=== PATIENT | female | born 1985 | race Caucasian/White ===

== ENCOUNTER 2018-09-27 22:55 | Observation (INO) | payer MEDICAID ==
[2018-09-28 00:05] LABS: Appearance SLIGHTLY CLOUDY (CLEAR); Bilirubin NEGATIVE (NEGATIVE); Blood NEGATIVE Ery/ul (0-5); Glucose NEGATIVE (NEGATIVE); Ketones TRACE (NEGATIVE); Leukocyte Esterase NEGATIVE (NEGATIVE); Nitrite NEGATIVE (NEGATIVE); Protein,Urine Dip 30 (Negative); Specific Gravity 1.025 (1.005-1.025); Urobilinogen 2 mg/dL (0-1)
[2018-09-28 00:41] VITALS: BP 126/76; PULSE 94
== END 2018-09-28 00:30 | disposition home or self-care (01) ==
LOC: OB 22:55
PROVIDERS: ADMIT Family Medicine; ATTEND Family Medicine
DX: Z34.83 Encounter for supervision of other normal pregnancy, third trimester (principal)
CPT/HCPCS: 81001; G0378

== ENCOUNTER 2018-11-03 20:44 | Observation (INO) | payer MEDICAID ==
[2018-11-03 22:04] LABS: Amphetamine,Urine NEGATIVE (NEGATIVE); Barbiturate,Urine NEGATIVE (NEGATIVE); Benzodiazepine,Urine NEGATIVE (NEGATIVE); Cocaine,Urine NEGATIVE (NEGATIVE); Methadone,Urine NEGATIVE (NEGATIVE); Opiate,Urine NEGATIVE (NEGATIVE); PCP,Urine NEGATIVE (NEGATIVE); THC,Urine NEGATIVE (NEGATIVE)
[2018-11-03 22:07] LABS: Appearance SLIGHTLY CLOUDY (CLEAR)
[2018-11-03 22:08] LABS: Bilirubin SMALL (NEGATIVE); Blood NEGATIVE Ery/ul (0-5); Epithelial Cells FEW /HPF (FEW); Glucose NEGATIVE (NEGATIVE); Ketones TRACE (NEGATIVE); Leukocyte Esterase NEGATIVE (NEGATIVE); Mucus SLIGHT /HPF (NEGATIVE); Nitrite NEGATIVE (NEGATIVE); Protein,Urine Dip 100 (Negative); Specific Gravity 1.032 (1.005-1.025); Urobilinogen 4 mg/dL (0-1)
[2018-11-03 23:24] VITALS: BP 133/75; PULSE 109
== END 2018-11-03 22:45 | disposition home or self-care (01) ==
LOC: OB 20:44
PROVIDERS: ADMIT Family Medicine; ATTEND Family Medicine
DX: Z34.83 Encounter for supervision of other normal pregnancy, third trimester (principal)
CPT/HCPCS: 80307; 81001; G0378

== ENCOUNTER 2018-11-06 10:10 | Observation (INO) | payer MEDICAID ==
[2018-11-06 10:47] LABS: BASOPHIL % 0.2 % (0.0-0.4); Basophil (Absolute #) 0.02 (0-0.4); Eosinophil % 1.8 % (0.00-5.0); Eosinophil (Absolute #) 0.17 (0-0.5); Granulocyte Absolute (ANC) 6.98 (1.4-6.9); Granulocytes % 74.5 % (36.0-66.0); Hematocrit 30.8 % (35-47); Hemoglobin 9.8 gm/dl (12.0-16.0); Lymphocyte (Absolute #) 1.43 (1.0-4.6); Lymphocytes % 15.2 % (24.0-44.0); Mean Cell Volume 82.8 fl (78-100); Mean Corpuscular Hemoglobin 26.3 pg (26-32); Mean Corpuscular Hgb Concent. 31.8 g/dl (32-36); Mean Platelet Volume 9.8 fl (6-9.5); Monocyte (Absolute #) 0.78 (0.0-1.3); Monocytes % 8.3 % (0.0-12.0); Platelet Count 245 K/mm3 (150-450); Red Blood Count 3.72 M/mm3 (4.1-5.4); Red Cell Distribution Width 14.7 % (11.5-14.0); White Blood Count 9.4 K/mm3 (4.0-10.5)
[2018-11-06 11:01] VITALS: BP 136/75; PULSE 98
[2018-11-06 11:11] LABS: ALBUMIN 3.6 g/dL (3.5-5.0); ALKALINE PHOSPHATASE 157 U/L (38-126); ANION GAP 12.6 MEQ/L (5-15); BLOOD UREA NITROGEN 10 mg/dL (7-17); CHLORIDE 105 mmol/L (98-107); Carbon Dioxide 23 mmol/L (22-30); Creatinine 1 0.65 mg/dL (0.52-1.04); Glucose 102 mg/dL (74-106); Potassium 3.5 mmol/L (3.5-5.1); SGOT/AST 17 U/L (14-36); SGPT/ALT 18 U/L (0-35); SODIUM 137 mmol/L (137-145); Total Protein 6.9 g/dL (6.3-8.2); Uric Acid 3.9 mg/dL (2.6-6.0)
== END 2018-11-06 12:10 | disposition home or self-care (01) ==
LOC: OB 10:10
PROVIDERS: ADMIT Family Medicine; ATTEND Family Medicine
DX: Z34.83 Encounter for supervision of other normal pregnancy, third trimester (principal)
CPT/HCPCS: 36415; 59025; 80053; 84550; 85025; G0378

== ENCOUNTER 2018-11-08 00:05 | Inpatient (IN) | payer MEDICAID ==
[2018-11-08] MEDS ORDERED: Decadron 4 MG INJ IV ONE (00:06)
[2018-11-08] MEDS ORDERED: Pitocin 10 UNITS/ML IV ONE (00:06)
[2018-11-08] MEDS ORDERED: LIDOCAINE HCL 2% 100 MG/5 ML IJ ONE (00:06)
[2018-11-08] MEDS ORDERED: Zofran 4 MG/2 ML VIAL IV ONE (00:06)
[2018-11-08] MEDS ORDERED: TORADOL IV ONE (00:06)
[2018-11-08] MEDS ORDERED: Ephedrine Sulfate 50 MG/ML IJ ONE (00:06)
[2018-11-08] MEDS ORDERED: Lactated Ringers 1,000 ML IV ONE ×2 (01:06→07:17)
[2018-11-08] MEDS ORDERED: Reglan 10 MG/2 ML IV SCH (01:15)
[2018-11-08] MEDS ORDERED: BICITRA 30 ML CUP PO SCH (01:15)
[2018-11-08] MEDS ORDERED: Pepcid 20 MG VIAL IV SCH (01:15)
[2018-11-08] MEDS ORDERED: Lactated Ringers 1,000 ML IV SCH (01:30)
[2018-11-08] MEDS ORDERED: CLINDAMYCIN-D5W 900 MG/50 ML*** 900 MG/50 ML BAG IV SCH (01:30)
[2018-11-08 02:10] LABS: Hemoglobin 9.3 gm/dl (12.0-16.0); Mean Cell Volume 81.9 fl (78-100); Mean Corpuscular Hgb Concent. 32.1 g/dl (32-36); Mean Platelet Volume 9.6 fl (6-9.5); Platelet Count 229 K/mm3 (150-450); Red Blood Count 3.54 M/mm3 (4.1-5.4); Red Cell Distribution Width 14.6 % (11.5-14.0); White Blood Count 8.9 K/mm3 (4.0-10.5)
[2018-11-08 02:15] LABS: Mean Corpuscular Hemoglobin 26.2 pg (26-32)
[2018-11-08 02:31] LABS: PROTIME 11.6 SECONDS (9.95-12.35)
[2018-11-08 02:34] LABS: PTT 28.6 SECONDS (25.3-37.0)
[2018-11-08 02:38] LABS: Appearance SLIGHTLY CLOUDY (CLEAR); Bilirubin NEGATIVE (NEGATIVE); Blood NEGATIVE Ery/ul (0-5); Epithelial Cells RARE /HPF (FEW); Glucose NEGATIVE (NEGATIVE); Ketones NEGATIVE (NEGATIVE); Leukocyte Esterase NEGATIVE (NEGATIVE); Mucus SLIGHT /HPF (NEGATIVE); Nitrite NEGATIVE (NEGATIVE); Protein,Urine Dip NEGATIVE (Negative); Specific Gravity 1.018 (1.005-1.025); Urobilinogen NEGATIVE mg/dL (0-1)
[2018-11-08 02:42] LABS: Bacteria NONE SEEN /HPF (NEGATIVE)
[2018-11-08 02:52] LABS: ABO TYPING O; Antibody Screen NEGATIVE (NEGATIVE); RH TYPING NEGATIVE
[2018-11-08 03:33] LABS: Amphetamine,Urine NEGATIVE (NEGATIVE); Barbiturate,Urine NEGATIVE (NEGATIVE); Benzodiazepine,Urine NEGATIVE (NEGATIVE); Cocaine,Urine NEGATIVE (NEGATIVE); Methadone,Urine NEGATIVE (NEGATIVE); Opiate,Urine NEGATIVE (NEGATIVE); PCP,Urine NEGATIVE (NEGATIVE); THC,Urine NEGATIVE (NEGATIVE)
[2018-11-08] MEDS ORDERED: BENADRYL 50 MG/ML IV PRN (10:00)
[2018-11-08] MEDS ORDERED: CLARITIN 10 MG PO PRN (10:00)
[2018-11-08] MEDS ORDERED: TYLENOL EXTRA STRENGTH 500 MG PO PRN (10:00)
[2018-11-08] MEDS ORDERED: Dulcolax 10 MG SUPP PR PRN (10:00)
[2018-11-08] MEDS ORDERED: HOLD NARCOTIC ANALGESICS AND SEDATIVES X24 HR MC PRN (10:00)
[2018-11-08] MEDS ORDERED: MORPHINE SULFATE 2 MG INJ IV PRN (10:00)
[2018-11-08] MEDS ORDERED: Zofran 4 MG/2 ML VIAL IV PRN (10:00)
[2018-11-08] MEDS ORDERED: Narcan 0.4 MG/ML IV PRN (10:00)
[2018-11-08] MEDS ORDERED: Nubain 10 MG/ML IV PRN (10:00)
[2018-11-08] MEDS ORDERED: DEMEROL 50 MG IV PRN (10:00)
--- NOTE | 2018-11-08 10:24 | OP ---
SURGERY DATE/TIME: 11/08/2018 0836 PREOPERATIVE DIAGNOSES: 1) macrosomia. 2) History of prior traumatic delivery. 3) Desires permanent sterilization. POSTOPERATIVE DIAGNOSES: 1) macrosomia. 2) History of prior traumatic delivery. 3) Desires permanent sterilization. 4) Breech presentation. PROCEDURES: 1) Primary low transverse section. 2) Bilateral tubal ligation. SURGEON: Reza Vigil M.D. ESTIMATED BLOOD LOSS: 400 cc. URINE OUTPUT: 100 cc of clear straw-colored urine. IV FLUIDS: 1800 cc of crystalloid. ANESTHESIA: Spinal by Shahzad Galeas CRNA. SPECIMEN: Placenta was sent to pathology and bilateral fallopian tube segments. HISTORY: The patient is a patient of Dr. Marie'florence with history of prior traumatic delivery with extensive perineal laceration repair who had an ultrasound last week which showed fetus in the macrosomic range greater than 95 percentile. She also expressed desire for tubal ligation, had already signed consent form in the office on 10/16/2018. I was asked to consult due to the macrosomia and history of prior traumatic delivery. I discussed with her in the office the permanent nature of tubal ligation as well as complications including failure rate of 1:300. She recognized the permanence of the procedure and due to the unexpected primary section we went ahead and proceeded on 11/08/2018 as requested by the patient. DESCRIPTION OF PROCEDURE: The patient was taken to the OR and underwent spinal anesthetic, had a Islas placed and was prepped and draped in usual sterile fashion. After testing was done to show good anesthesia, a low transverse skin incision was made by knife and carried down to the subcutaneous fat to the level of the fascia. The fascia was nicked on both sides of the midline, extended in horizontal fashion using curved Mark scissors. The superior free edge of the fascia was grasped with Rachael clamps and the underlying rectus muscles were dissected free. The same was repeated inferiorly. The peritoneal cavity was then opened bluntly and extended in horizontal fashion. A bladder blade was inserted. Bladder flap was then created over the lower uterine segment and reflected down. A horizontal uterine incision was made by knife and carried down to the level of the amniotic membranes which were carefully artificially ruptured and revealed clear amniotic fluid. Unexpectedly the infant was noted to be in the breech presentation and was delivered from the breech presentation. Oropharynx and nares were bulb suctioned free. The cord was clamped and cut and then Dr. Frank hayward/scrubbed to care for the baby. There was a strong cry present after some stimulation at the warmer. There was meconium passed during delivery. The placenta was manually extracted from the uterine cavity and the uterus was exteriorized. The uterine cavity was sponge curetted clean with lap sponge and then the uterine incision was closed with #1 chromic in a running locked fashion with good closure and good hemostasis. Next, the left fallopian tube was identified and carried down to fimbrial edge grasped with [place] and electrocautery was used to make a window in the mesosalpinx. The proximal and distal tube segments were ligated with chromic suture and the interceding tube segment was dissected free with Metzenbaum scissors. The luminal edge was cauterized with electrocautery. The same procedure was repeated on the right side. Both fallopian tube segments were sent for pathology. The posterior cul-de-sac was wiped free of blood and clot with moist lap sponge. The uterus was returned to the peritoneal cavity. There was a small area of oozing in the central portion of the incision which was reinforced with a second layer of #1 chromic with good closure and good hemostasis. The lateral gutters were wiped free of blood and clot. The uterine incision was noted to be hemostatic with good closure. Next, the fascia was closed with 0 Vicryl in a running fashion with good closure and good hemostasis achieved. Subcutaneous fat was irrigated with warm, sterile saline. Interrupted sutures were placed in subcutaneous fat with 2-0 Vicryl to close the space. Finally the skin layer was closed with 4-0 undyed Vicryl in a running subcuticular fashion. Steri-Strips and occlusive dressing were placed over the incision. The patient was transferred to the recovery room in good condition.
[2018-11-08 10:31] LABS: Appearance CLEAR (CLEAR); Bilirubin NEGATIVE (NEGATIVE); Blood NEGATIVE Ery/ul (0-5); Epithelial Cells RARE /HPF (FEW); Glucose NEGATIVE (NEGATIVE); Ketones SMALL (NEGATIVE); Leukocyte Esterase NEGATIVE (NEGATIVE); Nitrite NEGATIVE (NEGATIVE); Protein,Urine Dip NEGATIVE (Negative); Specific Gravity 1.011 (1.005-1.025); Urobilinogen NEGATIVE mg/dL (0-1)
[2018-11-08] MEDS: Dextrose 5%-Lr IV Solution 1000 ML 1,000 ML IV SCH ×2 (10:37→13:50)
[2018-11-08] MEDS: MOTRIN 400 MG PO PRN ×2 (14:59→21:35)
[2018-11-08] MEDS ORDERED: ASTRAMORPH IJ ONE (15:33)
[2018-11-08] MEDS: Colace 100 MG PO SCH (21:33)
[2018-11-08] MEDS: Pepcid 20 MG PO SCH (21:33)
[2018-11-08] MEDS: Wellbutrin XL 150 MG PO SCH (21:34)
[2018-11-09] MEDS: PERCOCET TABLET 5/325MG PO PRN ×3 (01:18→06:59)
[2018-11-09] MEDS: MOTRIN 400 MG PO PRN ×3 (05:14→21:45)
[2018-11-09 05:44] LABS: BASOPHIL % 0.1 % (0.0-0.4); Basophil (Absolute #) 0.01 (0-0.4); Eosinophil % 0.7 % (0.00-5.0); Eosinophil (Absolute #) 0.07 (0-0.5); Granulocytes % 76.7 % (36.0-66.0); Hematocrit 23.8 % (35-47); Hemoglobin 7.4 gm/dl (12.0-16.0); Lymphocyte (Absolute #) 1.43 (1.0-4.6); Lymphocytes % 13.6 % (24.0-44.0); Mean Cell Volume 83.8 fl (78-100); Mean Corpuscular Hgb Concent. 31.1 g/dl (32-36); Mean Platelet Volume 9.6 fl (6-9.5); Monocyte (Absolute #) 0.94 (0.0-1.3); Monocytes % 8.9 % (0.0-12.0); Platelet Count 178 K/mm3 (150-450); Red Blood Count 2.84 M/mm3 (4.1-5.4); Red Cell Distribution Width 14.7 % (11.5-14.0); White Blood Count 10.6 K/mm3 (4.0-10.5)
[2018-11-09] MEDS ORDERED: NORCO 5/325 MG PO PRN (09:00)
[2018-11-09] MEDS ORDERED: DEMEROL 50 MG IV PRN (09:00)
[2018-11-09] MEDS ORDERED: Phenergan 25 MG INJ IM PRN (09:00)
[2018-11-09] MEDS: Colace 100 MG PO SCH ×2 (10:59→21:45)
[2018-11-09] MEDS: Pepcid 20 MG PO SCH ×2 (14:03→21:45)
[2018-11-09] MEDS: NORCO 5/325 MG PO PRN ×2 (14:55→18:57)
[2018-11-09] MEDS: Mylicon 80MG PO PRN ×2 (17:27→21:44)
[2018-11-09] MEDS: FERREX 150 PO SCH (21:45)
[2018-11-09] MEDS: Wellbutrin XL 150 MG PO SCH (21:46)
[2018-11-10] MEDS: NORCO 5/325 MG PO PRN ×2 (00:55→06:56)
[2018-11-10] MEDS: MOTRIN 400 MG PO PRN ×2 (04:14→10:14)
[2018-11-10] MEDS: Mylicon 80MG PO PRN (04:14)
--- NOTE | 2018-11-10 09:10 | PCM.DS ---
Discharge Summary Date of Admission: 11/08/18 00:05 Admitting Physician: JT TONY Consults: Consults on Case 11/08/18 01:04 Notify Physician OF ADMISSION 11/08/18 01:06 Notify Anesthesia Provider ROUTINE Primary Care Provider: JT TONY Allergies Allergies Penicillins Allergy (Severe, Verified 11/06/18 11:05) [facility] Summary - Hospital Course Hospital Course: patient had primary with tubal on 11/08 due to breech presentation and macrosomia. doing very well , tolerating po, mild lochia and pain is controlled. - Vitals & Intake/Output Vital Signs: Vital Signs Temperature 97.7 F 11/10/18 01:00 Pulse Rate 81 11/10/18 01:00 Respiratory Rate 18 11/10/18 01:00 Blood Pressure 117/70 11/10/18 01:00 O2 Sat by Pulse Oximetry 97 11/09/18 05:00 Intake & Output: Intake & Output 11/07/18 11/08/18 11/09/18 11/10/18 11:59 11:59 11:59 11:59 Intake Total 7927 2200 Output Total 3302 Balance 4625 2200 Weight 122.016 kg - Lab Result Diagrams: 11/09/18 05:30 Micro Results-Entire Visit: Microbiology 11/08/18 08:45 Urine Culture - Final Catherized NO GROWTH - Procedures and Test Procedures and Tests throughout Hospitalization: Therapy Orders & Screens 11/08/18 09:04 Standby ROUTINE Comment: Diagnosis: Primary Section with Bilateral Tubal Ligation Discharge Exam General Appearance: no apparent distress, alert Skin Exam: normal color, warm, dry Respiratory Exam: normal breath sounds, lungs clear, No respiratory distress Cardiovascular Exam: regular rate/rhythm, normal heart sounds Gastrointestinal/Abdomen Exam: soft, other (incision clean,dry, intact), No tenderness, No mass Extremity Exam: normal inspection, normal range of motion Final Diagnosis/Problem List - Final Discharge Diagnosis/Problem (1) delivery delivered Current Visit: Yes Status: Acute (2) Tubal ligation status Current Visit: Yes Status: Acute - Discharge Disposition: Home, Self-Care Condition: Stable Prescriptions: New Hydrocodone Bit/Acetaminophen [[place] 10-325 Tablet] 1 each PO Q6H PRN PRN # 28 tablet PRN Reason: Pain Continue Bupropion HCl Xl 150 mg [Wellbutrin XL 150 MG] 150 mg PO DAILY Ranitidine HCl [Zantac 75] 75 mg PO BID Follow up with: JT TONY [Primary Care Provider] - 1 Week
[2018-11-10] MEDS: Colace 100 MG PO SCH (10:14)
[2018-11-10] MEDS: FERREX 150 PO SCH (10:14)
[2018-11-10 11:23] VITALS: BP 126/73; PULSE 108; O2SAT 98
[2018-11-10 11:46] LABS: BASOPHIL % 0.2 % (0.0-0.4); Basophil (Absolute #) 0.02 (0-0.4); Eosinophil % 2.3 % (0.00-5.0); Eosinophil (Absolute #) 0.22 (0-0.5); Granulocyte Absolute (ANC) 7.38 (1.4-6.9); Granulocytes % 76.3 % (36.0-66.0); Hematocrit 25.6 % (35-47); Lymphocyte (Absolute #) 1.38 (1.0-4.6); Lymphocytes % 14.3 % (24.0-44.0); Mean Cell Volume 84.5 fl (78-100); Mean Corpuscular Hemoglobin 26.4 pg (26-32); Mean Corpuscular Hgb Concent. 31.3 g/dl (32-36); Mean Platelet Volume 9.4 fl (6-9.5); Monocyte (Absolute #) 0.67 (0.0-1.3); Monocytes % 6.9 % (0.0-12.0); Platelet Count 234 K/mm3 (150-450); Red Blood Count 3.03 M/mm3 (4.1-5.4); Red Cell Distribution Width 14.9 % (11.5-14.0); White Blood Count 9.7 K/mm3 (4.0-10.5)
== END 2018-11-10 13:20 | disposition home or self-care (01) | DRG 785 ==
LOC: MED SURG 00:05 → OBSVTOIN 00:05
PROVIDERS: ADMIT Family Medicine; ATTEND Family Medicine
PROC: 10D00Z1 Extraction of Products of Conception, Low, Open Approach (ICD-10-PCS; principal; 2018-11-08)
PROC: 0UT70ZZ Resection of Bilateral Fallopian Tubes, Open Approach (ICD-10-PCS; 2018-11-08)
DX: O36.63X0 Maternal care for excessive fetal growth, third trimester, not applicable or unspecified (principal); O32.1XX0 Maternal care for breech presentation, not applicable or unspecified; Z3A.39 39 weeks gestation of pregnancy; Z37.0 Single live birth; Z30.2 Encounter for sterilization
CPT/HCPCS: 36415; 59025; 64488; 76942; 80053; 80307; 81001; 81003; 84550; 85025; 85027; 85610; 85730; 86850; 86900; 86901; 87086; 88307; 94799; G0378; J1100; J1885; J2274; J2405; J2590; L0625; A9270-GY

== ENCOUNTER 2020-11-23 08:21 | Day surgery (SDC) | payer BC ==
[2020-11-23] MEDS ORDERED: Lactated Ringers 1,000 ML IV SCH (08:30)
[2020-11-23] MEDS ORDERED: Lactated Ringers 1,000 ML IV ONE ×2 (08:46→13:24)
[2020-11-23 09:07] VITALS: O2SAT 98
[2020-11-23] MEDS ORDERED: VIBRAMYCIN 100 MG*** 100 MG in Dextrose 5%/Water IV Soln. 100ML PLUS BAG 100 ML IV SCH (10:00)
[2020-11-23] MEDS ORDERED: SUBLIMAZE 100 MCG/2 ML ONE ×2 (11:35→13:17)
[2020-11-23] MEDS ORDERED: DIPRIVAN 200 MG/20 ML IV ONE (11:35)
[2020-11-23] MEDS ORDERED: Versed 2 MG/2 ML Injection ONE (11:35)
[2020-11-23] MEDS ORDERED: Decadron 4 MG INJ ONE (11:37)
[2020-11-23] MEDS ORDERED: TORAdol 30 mg Injection ONE (11:37)
[2020-11-23] MEDS ORDERED: Zofran 4 MG/2 ML VIAL ONE ×2 (11:37→13:17)
[2020-11-23] MEDS ORDERED: Quelicin Fliptop 200 MG/10 ML ONE (12:23)
[2020-11-23 14:51] VITALS: BP 128/72; PULSE 78
--- NOTE | 2020-11-24 10:03 | OP ---
SURGERY DATE/TIME: 11/23/2020 1225 PREOPERATIVE DIAGNOSIS: Menorrhagia. POSTOPERATIVE DIAGNOSIS: Menorrhagia. PROCEDURE: Hysteroscopy D&C with attempted ablation. SURGEON: Edgardo Harrell D.O. [employer]: technical business analyst. ANESTHESIA: General. ESTIMATED BLOOD LOSS: Minimal. COMPLICATIONS: None. INDICATIONS: The risks, benefits, indications and alternatives of the procedure were reviewed with the patient prior to the procedure. The patient understood the risk of infection, bleeding, bowel injury, bladder injury, ureteral injury, uterine perforation, pelvic infection, thromboembolic disorder that may be associated with this procedure however desires to have this surgery as a possible means to alleviate her current medical condition. DESCRIPTION OF PROCEDURE AND FINDINGS: At this point the patient is taken to the operating room, given general sedation, placed in dorsal lithotomy position, prepped and draped in the usual sterile fashion. A weighted speculum is then placed in the patient's vagina and the anterior lip of the cervix is grasped with a single tooth tenaculum. Endocervical dilators were advanced through the endocervical canal as a means to dilate the cervix and the uterus was sounded to approximately 10 cm. From this point a 5 mm hysteroscope was then placed in through the endocervical region where visualization of the uterine cavity appeared to be within normal limits. From this point the hysteroscope was removed and the curette was then placed into the fundus of the uterus where curettage is performed in all quadrants of the uterus retrieving a mild to moderate amount of tissue. From this point the curette was then removed and the NovaSure was then introduced through the endocervical canal where it had reached the uterine fundus and retracted approximately 1 to 2 cm where it was engaged with a length of 6 cm. However, the recording did not give us a width where it remains in the red zone. After multiple attempts the NovaSure again it did not leave the red zone and at this time the procedure of NovaSure was abandoned. From this point the NovaSure was removed from the uterine cavity after approximately four times of attempt and all instruments were subsequently removed from the patient's vaginal region at this time as well. The patient was then taken out of dorsal lithotomy position, was taken out of anesthesia and then was taken to the recovery room in stable condition. All instruments and laps were accounted for x2.
== END 2020-11-23 15:04 | disposition home or self-care (01) ==
LOC: SDC 08:21
PROVIDERS: ATTEND Obstetrics & Gynecology
DX: N92.0 Excessive and frequent menstruation with regular cycle (principal)
CPT/HCPCS: 84703; J0330; J1100; J1885; J2250; J2405; J2704; J3010

== ENCOUNTER 2021-04-21 11:29 | Day surgery (SDC) | payer BC ==
--- NOTE | 2021-04-14 08:54 | HP ---
DATE OF SURGERY: 04/21/2021 HISTORY OF PRESENT ILLNESS: The patient presented with a symptomatic umbilical hernia. Painful at times. She also complains of some symptomatic gallstones. She had an ultrasound approximately a year ago had some cholelithiasis on it. States her gallbladder symptoms have become a little bit worse lately. PAST MEDICAL HISTORY: None. PAST SURGICAL HISTORY: section. D&C. Uterine ablation. ALLERGIES: PENICILLIN. CODEINE. MEDICATIONS: Saxenda. FAMILY HISTORY: Anemia. Diabetes. Gallbladder cancer. SOCIAL HISTORY: None. REVIEW OF SYSTEMS: CONSTITUTIONAL: Denies fever or chills. CHEST: Denies shortness of breath. CVS: Denies chest pain. ABDOMEN: Reports some right upper quadrant pain. INTEGUMENTARY: Negative. PHYSICAL EXAMINATION: GENERAL: No acute distress. CHEST: Nonlabored. No shortness of breath. CVS: Regular rate and rhythm. ABDOMEN: Soft, tender umbilical hernia. EXTREMITIES: No edema. NEUROLOGIC: Alert. PSYCHIATRIC: Appropriate. IMPRESSION: Symptomatic cholelithiasis and symptomatic umbilical hernia. PLAN: Laparoscopic cholecystectomy and umbilical hernia repair with no mesh with Dr. Torres Pa. As dictated by Mary Sheth NP.
[~2021-04-21 11:29] MED LIST: Lactated Ringers 1,000 ML IV ONE; Sensorcaine 0.25% 10 ML ONE
[2021-04-21] MEDS ORDERED: Lactated Ringers 1,000 ML IV SCH (11:30)
[2021-04-21] MEDS ORDERED: Levofloxacin 500MG/100ML D5W 500 MG/100 ML BAG IV ONE (11:35)
[2021-04-21] MEDS ORDERED: Xylocaine-Mpf 2% 5 Ml Vial ONE ×2 (11:37→15:55)
[2021-04-21] MEDS ORDERED: CLINDAMYCIN-D5W 900 MG/50 ML*** 900 MG/50 ML BAG IV SCH (12:00)
[2021-04-21] MEDS: Levofloxacin 500MG/100ML D5W 500 MG/100 ML BAG IV ONE ×2 (12:11→12:13)
[2021-04-21] MEDS ORDERED: Versed 2 MG/2 ML Injection ONE (12:23)
[2021-04-21] MEDS: Versed 2 MG/2 ML Injection IV PRN ×2 (12:26→14:38)
[2021-04-21] MEDS ORDERED: DIPRIVAN 200 MG/20 ML IV ONE (15:55)
[2021-04-21] MEDS ORDERED: Zofran 4 MG/2 ML VIAL ONE (15:55)
[2021-04-21] MEDS ORDERED: Decadron 4 MG INJ ONE (15:55)
[2021-04-21] MEDS ORDERED: BRIDION 200MG/2ML IV ONE (15:55)
[2021-04-21] MEDS ORDERED: Zemuron 100 MG/10 ML ONE (15:55)
[2021-04-21] MEDS ORDERED: SUBLIMAZE 100 MCG/2 ML ONE ×3 (15:56→17:56)
[2021-04-21] MEDS ORDERED: Sensorcaine 0.25% 10 ML ONE (16:20)
[2021-04-21] MEDS ORDERED: Lactated Ringers 1,000 ML IV ONE (17:18)
[2021-04-21] MEDS ORDERED: TORAdol 30 mg Injection ONE (18:06)
[2021-04-21] MEDS ORDERED: Compazine 10 MG/2 ML ONE (18:16)
[2021-04-21 18:51] VITALS: O2SAT 94
[2021-04-21 19:01] VITALS: BP 106/68; PULSE 70
--- NOTE | 2021-04-22 11:09 | OP ---
SURGERY DATE/TIME: 04/21/2021 1626 PREOPERATIVE DIAGNOSES: 1) Symptomatic cholelithiasis. 2) Symptomatic umbilical hernia. POSTOPERATIVE DIAGNOSES: 1) Symptomatic cholelithiasis. 2) Symptomatic umbilical hernia. PROCEDURES: 1) Laparoscopic cholecystectomy. 2) Laparoscopic umbilical herniorrhaphy. SURGEON: Dr. Torres Pa. ANESTHESIA: General. COMPLICATIONS: None. CONDITION: Stable. INDICATIONS: The patient has both gallstones and symptomatic umbilical hernia. DESCRIPTION OF PROCEDURE AND FINDINGS: Taken to surgery. General anesthetic, routine prep and drape. A 5 port was placed through the hernia under direct visualization. Three additional ports placed in the upper abdomen. The gallbladder was retracted. The infundibulum dissected. Cystic duct defined. Cystic artery defined. Both structures triply clipped and transected. Clips noted across and well approximated. Gallbladder rolled out of gallbladder fossa. The gallbladder delivered through umbilical hernia site. The fascia was then approximated with three sutures of 0 Vicryl were all placed and pulled up and the defect was obliterated. The patient tolerated the procedure satisfactorily. Skin closed with 4-0 Vicryl and Steri-Strips. I had a discussion with the daughter in the waiting room.
== END 2021-04-21 19:05 | disposition home or self-care (01) ==
LOC: SDC 11:29
PROVIDERS: ATTEND Surgery
DX: K80.20 Calculus of gallbladder without cholecystitis without obstruction (principal); K42.9 Umbilical hernia without obstruction or gangrene
CPT/HCPCS: J1100; J1885; J1956; J2250; J2405; J2704; J3010

== ENCOUNTER 2023-11-28 18:48 | Emergency (ER) | payer SELFPAY ==
[2023-11-28 19:09] VITALS: BP 145/84; PULSE 74; RESP 18; TEMP 98.2; O2SAT 100
--- NOTE | 2023-11-28 19:19 | ERPHSYRPT ---
- History of Present Illness Time Seen by Provider: 11/28/23 19:16 Source: patient Exam Limitations: no limitations Patient Subjective Stated Complaint: C/O right sided facial swelling that started yesterday. Patient noticed the swelling during the school day. Triage Nursing Assessment: Patient ambulated back to ER without difficulties. NO SOB. Right side of face is swollen. NO trouble swallowing. She is alert and oriented. Physician History: Patient is a 38-year-old female presents to our ED for evaluation of right upper facial swelling. Patient has dental pain as well. Symptoms started yesterday. Patient is currently on amoxicillin, a prescription her had at home. Patient has been on it for over a day. Patient concerned because symptoms have not improved. Patient had ibuprofen Tylenol prior to arrival. Patient appears to be comfortable no active pain unless the area is palpated. No associated symptomology. No headache no nausea no vomiting. No rash no fever. Patient otherwise feels well. Mother at bedside. They voiced no other complaints or concerns at this time. Portions of this note were created with voice recognition technology. There may be grammatical, spelling, punctuation or sound alike errors Timing/Duration: yesterday Severity: moderate Modifying Factors: Improves With: other (Palpation) Associated Symptoms: denies symptoms Allergies/Adverse Reactions: No Known Drug Allergies Allergy (Verified 11/28/23 19:13) Home Medications: Dextroamphetamine/Amphetamine [Adderall 15 mg Tablet] 1 tab PO BID 11/28/23 [History] Escitalopram Oxalate [Lexapro] 20 mg PO DAILY 11/28/23 [History] Tirzepatide [Zepbound] 2.5 mg SQ WEEKLY 11/28/23 [History] Hx Tetanus, Diphtheria Vaccination/Date Given: Yes Hx Influenza Vaccination/Date Given: No Immunizations Up to Date: Yes Travel Risk - International Travel Have you traveled outside of the country in past 3 weeks: No - Coronavirus Screening Are you exhibiting any of the following symptoms?: No Close contact with a COVID-19 positive Pt in past 14-21 Days: No - Vaccine Status Have you recieved a Covid-19 vaccination: Yes Internal Specialist: Unknown - Vaccination Dates Dates if Unknown: ? - Review of Systems Constitutional: No Symptoms, No Fever, No Chills Eyes: No Symptoms Ears, Nose, & Throat: No Symptoms Respiratory: No Symptoms, No Cough, No Dyspnea Cardiac: No Symptoms, No Chest Pain, No Edema, No Syncope Abdominal/Gastrointestinal: No Symptoms, No Abdominal Pain, No Nausea, No Vomiting, No Diarrhea Genitourinary Symptoms: No Symptoms, No Dysuria Musculoskeletal: No Symptoms, No Back Pain, No Neck Pain Skin: No Symptoms, No Rash Neurological: No Symptoms, No Dizziness, No Focal Weakness, No Sensory Changes Psychological: No Symptoms Endocrine: No Symptoms Hematologic/Lymphatic: No Symptoms Immunological/Allergic: No Symptoms All Other Systems: Reviewed and Negative - Past Medical History Pertinent Past Medical History: Yes Neurological History: No Pertinent History ENT History: No Pertinent History Cardiac History: No Pertinent History Respiratory History: No Pertinent History Endocrine Medical History: No Pertinent History Musculoskeletal History: No Pertinent History GI Medical History: Gallbladder Disease, Hernia History: No Pertinent History Psycho-Social History: No Pertinent History Female Reproductive Disorders: Endometriosis, Other Other Medical History: miscarriage in 2004, anemia, cyst on thyroid - Past Surgical History Past Surgical History: Yes Neuro Surgical History: No Pertinent History Cardiac: No Pertinent History Respiratory: No Pertinent History Gastrointestinal: Cholecystectomy, Hernia Repair Genitourinary: No Pertinent History Musculoskeletal: No Pertinent History Female Surgical History: Dilation & Curettage, Section, Tubal Ligation, Other Other Surgical History: uterine ablation - Social History Smoking Status: Former smoker Exposure to second hand smoke: No Drug Use: none Patient Lives Alone: No - Female History Hx Last Menstrual Period: NOW Hx Now: No (tubal) - Nursing Vital Signs Nursing Vital Signs: Initial Vital Signs Temperature 98.2 F 11/28/23 18:54 Pulse Rate 74 11/28/23 18:54 Respiratory Rate 18 11/28/23 18:54 Blood Pressure 145/84 11/28/23 18:54 O2 Sat by Pulse Oximetry 100 11/28/23 18:54 Pain Scale Pain Intensity 6 - Physical Exam General Appearance: no apparent distress, alert Eye Exam: PERRL/EOMI, eyes nml inspection Ears, Nose, Throat Exam: normal ENT inspection, moist mucous membranes, other (Dental abscess at tooth #4. Right-sided facial swelling. Several carious teeth observed at the right axilla) Neck Exam: normal inspection, full range of motion Respiratory Exam: normal breath sounds, lungs clear, airway intact, No respiratory distress Cardiovascular Exam: regular rate/rhythm Gastrointestinal/Abdomen Exam: soft, normal bowel sounds, No tenderness, No mass Back Exam: normal inspection, normal range of motion, No CVA tenderness, No vertebral tenderness Extremity Exam: normal inspection, normal range of motion, pelvis stable Neurologic Exam: alert, oriented x 3, cooperative, normal mood/affect, nml cerebellar function, nml station & gait, sensation nml, No motor deficits Skin Exam: normal color, warm, dry, No rash Lymphatic Exam: No adenopathy SpO2 Interpretation: normal SpO2: 100 O2 Delivery: Room Air - Course Nursing assessment & vital signs reviewed: Yes Ordered Tests: Medication Summary Discontinued Medications Generic Name Dose Route Start Last Admin Trade Name Frejanett PRN Reason Stop Dose Admin Amoxicillin/Clavulanate Potassium 875 mg 11/28/23 19:13 11/28/23 19:21 Amox Tr/Potassium Clavulanate 875 Mg Tablet PO 11/28/23 19:14 875 mg STAT ONE Administration Amoxicillin/Clavulanate Potassium Confirm 11/28/23 19:20 Amox Tr/Potassium Clavulanate 875 Mg Tablet Administered 11/28/23 19:21 Dose 875 mg .ROUTE .First OpinionMED ONE - Progress Progress: improved Progress Note: 38-year-old female presents to our ED with right-sided facial swelling. Patient has a dental abscess at tooth #4. Patient already on amoxicillin. We administered a dose of Augmentin in our ED as patient has not taken her p.m. dose of amoxicillin. Physical exam shows mild right-sided facial swelling. No airway compromise. No difficulty speaking or swallowing. A prescription for Augmentin forwarded to patient's pharmacy. Patient has a follow-up appointment scheduled with her dentist later this week. Patient had pain medication prior to arrival. Mother at bedside. They voiced no other complaints or concerns at this time. Patient will maintain her appointment with her dentist as scheduled. Portions of this note were created with voice recognition technology. There may be grammatical, spelling, punctuation or sound alike errors Complexity problem addressed is moderate acute complicated No critical care time Complexity data reviewed and analyzed is none. No specialized testing ordered. Diagnosis made based on history and physical exam. Risk of complication and or risk of morbidity/mortality of patient management is moderate. Prescription for Augmentin forwarded to patient's pharmacy. Patient will follow-up with her dentist later this week as scheduled. Vital stable. Time spent to discharge patient is approximately 15 minutes. Plan of care established for shared decision making. No social determinants of health present impede follow-up. Portions of this note were created with voice recognition technology. There may be grammatical, spelling, punctuation or sound alike errors 11/28/23 19:25 Counseled pt/family regarding: diagnosis, need for follow-up - Departure Departure Disposition: Home Clinical Impression: Dental abscess, Pain, dental, Carious teeth Condition: Stable Critical Care Time: No Referrals: JT SAAVEDRA [Primary Care Provider] - Follow up/PCP as directed Instructions: Tooth Abscess (DC) Additional Instructions: Discharge/Care Plan VAUGHNIKER BOLANOS was seen on 11/28/23 in the Emergency Room. The patient was counseled regarding Diagnosis,Lab results, Imaging studies, need for follow up and when to return to the Emergency Room. Prescriptions given: Discharge Note I have spoken with the patient and/or caregivers. I have explained the patient's condition, diagnosis and treatment plan based on the information available to me at this time. I have answered the patient's and/or caregiver's questions and addressed any concerns. The patient and/or caregivers have as good understanding of the patient's diagnosis, condition and treatment plan as can be expected at this point. The vital signs have been stable. The patient's condition is stable and appropriate for discharge from the emergency department. The patient will pursue further outpatient evaluation with the primary care physician or other designated or consulting physician as outlined in the discharge instructions. The patient and/or caregivers are agreeable to this plan of care and follow-up instructions have been explained in detail. The patient and/or caregivers have received these instruction. The patient/and or caregivers are aware that any significant change in condition or worsening of symptoms should prompt an immediate return to this or the closest emergency department or call 911. Prescriptions: Amox Tr/Potass Clav. 875 mg [Augmentin 875-125 Tablet] 875 mg PO BID 7 Days #14 tablet
[2023-11-28] MEDS ORDERED: Augmentin 875-125 Tablet ONE (19:20)
[2023-11-28] MEDS: Augmentin 875-125 Tablet PO ONE (19:21)
== END 2023-11-28 19:27 | disposition home or self-care (01) ==
LOC: ED 18:48
DX: K04.7 Periapical abscess without sinus (principal); K08.89 Other specified disorders of teeth and supporting structures; K02.9 Dental caries, unspecified; R22.0 Localized swelling, mass and lump, head; Z79.899 Other long term (current) drug therapy
CPT/HCPCS: 99281; A9270-GY